=== PATIENT | male | born 1950 | race Caucasian/White ===

== ENCOUNTER 2020-01-26 21:47 | Outpatient (CLI) | payer MEDICARE, OTHER | END 2020-01-26 21:48 | disposition critical access hospital (66) | LOC: EMS 21:47 | PROVIDERS: ATTEND Surgery | DX: R42 Dizziness and giddiness (principal) | CPT/HCPCS: A0425; A0427 ==

== ENCOUNTER 2020-01-26 22:02 | Emergency (ER) | payer MEDICARE, OTHER ==
[2020-01-26] MEDS ORDERED: SODIUM CHLORIDE 0.9% 1,000 ML IV STA (22:30)
--- NOTE | 2020-01-26 22:32 | ED Physician Documentation ---
History of Present Illness - Stated complaint Stated Complaint: DIZZY - Chief complaint Chief Complaint: Neuro - History obtained from History obtained from: Patient - History of Present Illness Timing: Today - Additonal information Additional information: 3 episodes of light headedness while at rest. Did not drink much today except for 3 cups of coffee. Review of Systems Constitutional: denies: Fever Eyes: denies: Decreased vision Ears: denies: Ear pain Nose: denies: Congestion Throat: denies: Sore throat Cardiac: denies: Chest pain / pressure, Palpitations Respiratory: denies: Dyspnea, Cough GI: denies: Abdominal Pain, Nausea, Vomiting : denies: Dysuria, Frequency Skin: denies: Rash Musculoskeletal: denies: Neck pain, Back pain, Extremity pain PD PAST MEDICAL HISTORY - Past Medical History Cardiovascular: Hypertension, High cholesterol, Coronary artery disease, [place] Respiratory: None Endocrine/Autoimmune: None GI: GERD, Hiatal hernia : None HEENT: None Psych: None Musculoskeletal: Osteoarthritis Derm: None - Past Surgical History Past Surgical History: Yes General: Other Cardiovascular: Coronary stent - Present Medications Home Medications: Ambulatory Orders Medication Instructions Recorded Confirmed Aspirin [Aspirin EC] 81 mg PO DAILY 10/26/15 01/26/20 Atorvastatin Calcium [Lipitor] 20 mg PO DAILY 10/26/15 01/26/20 Metoprolol Succinate [Toprol Xl] 25 mg PO DAILY 10/26/15 01/26/20 Omeprazole [PriLOSEC] 20 mg PO BID 10/26/15 01/26/20 Ascorbic Acid [Vitamin C] 1 tab PO DAILY 01/26/20 01/26/20 Lidocaine Patch 5% [Lidoderm Patch] 1 applic .ROUTE DAILY 01/26/20 01/26/20 Magnesium 1 tab PO DAILY 01/26/20 01/26/20 Zinc Gluconate [Zinc] 1 tab PO DAILY 01/26/20 01/26/20 - Allergies Allergies/Adverse Reactions: Allergies Allergy/AdvReac Type Severity Reaction Status Date / Time meperidine [From Demerol] Allergy Rash Verified 01/26/20 22:15 propoxyphene HCl * AdvReac Unknown Verified 01/26/20 22:15 [From Darvon] - Social History Does the pt smoke?: No Smoking Status: Never smoker Does the pt drink ETOH?: No Does the pt have substance abuse?: No - Immunizations Immunizations are current?: Yes - POLST Patient has POLST: No PD ED PE NORMAL - Vitals Vital signs reviewed: Yes (hypertensive ) - General General: Alert and oriented X 3, No acute distress, Well developed/nourished - HEENT HEENT: Atraumatic, PERRL, EOMI, Other (no nystagmus. 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, No motor deficit, No sensory deficit, Normal speech Eye Opening: Spontaneous Motor: Obeys Commands Verbal: Oriented GCS Score: 15 - Psych Psych: Normal mood, Normal affect Results - Vitals Vitals: Vital Signs - 24 hr 01/26/20 22:05 Temperature 36.6 C Heart Rate 65 Respiratory 18 Rate Blood Pressure 148/92 H O2 Saturation 99 Oxygen O2 Source Room air - EKG (time done) 2210 Rate: Rate (enter#) (61) Rhythm: NSR, Other (PAC) Intervals: RBBB Compare to prior EKG: Changed from prior EKG (SPT 10-25-2015 RBBB has developed) Computer interpretation: Agree with computer - Labs Labs: Laboratory Tests 01/26/20 01/26/20 01/26/20 22:45 22:45 22:45 WBC 6.4 RBC 5.11 Hgb 15.1 Hct 45.0 MCV 88.1 MCH 29.5 MCHC 33.6 RDW 12.9 Plt Count 173 MPV 9.5 Neut # (Auto) 4.0 Lymph # (Auto) 1.8 Wake # (Auto) 0.5 Eos # (Auto) 0.2 Baso # (Auto) 0.0 Absolute Nucleated RBC 0.00 Nucleated RBC % 0.0 Sodium 141 Potassium 3.9 Chloride 101 Carbon Dioxide 24 Anion Gap 16.0 H BUN 17 Creatinine 1.0 Estimated GFR (MDRD) 74 L Glucose 114 H Lactic Acid 1.4 Calcium 8.9 Total Bilirubin 0.8 AST 21 ALT 29 Alkaline Phosphatase 80 Total Protein 7.0 Albumin 3.7 Globulin 3.3 Albumin/Globulin Ratio 1.1 Lipase 29 Urine Color Urine Clarity Urine pH Ur Specific Warner Urine Protein Urine Glucose (UA) Urine Ketones Urine Occult Blood Urine Nitrite Urine Bilirubin Urine Urobilinogen Ur Leukocyte Esterase Ur Microscopic Review Urine Culture Comments 01/26/20 22:46 WBC RBC Hgb Hct MCV MCH MCHC RDW Plt Count MPV Neut # (Auto) Lymph # (Auto) Wake # (Auto) Eos # (Auto) Baso # (Auto) Absolute Nucleated RBC Nucleated RBC % Sodium Potassium Chloride Carbon Dioxide Anion Gap BUN Creatinine Estimated GFR (MDRD) Glucose Lactic Acid Calcium Total Bilirubin AST ALT Alkaline Phosphatase Total Protein Albumin Globulin Albumin/Globulin Ratio Lipase Urine Color YELLOW Urine Clarity CLEAR Urine pH 5.5 Ur Specific Warner 1.025 Urine Protein NEGATIVE Urine Glucose (UA) NEGATIVE Urine Ketones NEGATIVE Urine Occult Blood NEGATIVE Urine Nitrite NEGATIVE Urine Bilirubin NEGATIVE Urine Urobilinogen 0.2 (NORMAL) Ur Leukocyte Esterase NEGATIVE Ur Microscopic Review NOT INDICATED Urine Culture Comments NOT INDICATED Procedures - IVC sono (time) 222 Bedside IVC sono: IVC measures (cm) (0.83), IVC collapsed c insp (cm) (complete), Dehydration (est 2+ liter deficit) PD MEDICAL DECISION MAKING - ED course Complexity details: reviewed old records, reviewed results, re-evaluated patient, considered differential, d/w patient ED course: 69-year-old male with episodic dizziness today at rest is found to be dehydrated on interrogation the inferior vena cava. He is administered saline. There are no other specific findings on laboratory evaluation with exception of a concentrated urine. Departure - Departure Disposition: 01 Home, Self Care Clinical Impression: Dehydration Condition: Stable Instructions: ED Dehydration Follow-Up: Velma Castillo MD [Primary Care Provider] -
[2020-01-26 22:48] LABS: BASOPHILS % (AUTO) 0.5 %; EOSINOPHILS # (AUTO) 0.2 10^3/uL (0.0-0.7); EOSINOPHILS % (AUTO) 2.6 %; HGB - HEMOGLOBIN 15.1 g/dL (14.0-18.0); LYMPHOCYTES # (AUTO) 1.8 10^3/uL (1.5-3.5); LYMPHOCYTES % (AUTO) 27.4 %; MEAN CORPUSCULAR HEMOGLOBIN 29.5 pg (27.0-31.0); MEAN CORPUSCULAR HGB CONC 33.6 g/dL (32.0-36.0); MEAN CORPUSCULAR VOLUME 88.1 fL (80.0-94.0); MEAN PLATELET VOLUME 9.5 fL (7.4-11.4); MONOCYTES # (AUTO) 0.5 10^3/uL (0.0-1.0); MONOCYTES % (AUTO) 7.2 %; NEUTROPHILS % (AUTO) 62.1 %; PLT - PLATELET COUNT 173 10^3/uL (130-450); RED BLOOD COUNT 5.11 10^6/uL (4.70-6.10); RED CELL DISTRIBUTION WIDTH 12.9 % (12.0-15.0); WHITE BLOOD COUNT 6.4 x10^3/uL (4.8-10.8)
[2020-01-26 23:04] LABS: ALBUMIN 3.7 g/dL (3.2-5.5); ALBUMIN/GLOBULIN RATIO 1.1 (1.0-2.2); BILIRUBIN,TOTAL 0.8 mg/dL (0.2-1.0); CALCIUM 8.9 mg/dL (8.5-10.3)
[2020-01-26 23:22] LABS: BILIRUBIN,URINE NEGATIVE (NEGATIVE); GLUCOSE, URINE (UA) NEGATIVE (NEGATIVE); KETONES,URINE (UA) NEGATIVE (NEGATIVE); LEUKOCYTE ESTERASE, URINE NEGATIVE (NEGATIVE); NITRITE,URINE NEGATIVE (NEGATIVE); OCCULT BLOOD,URINE NEGATIVE (NEGATIVE); PH,URINE 5.5 PH (5.0-7.5); PROTEIN,URINE NEGATIVE (NEGATIVE); UROBILINOGEN,URINE 0.2 (NORMAL) E.U./dL (NORMAL)
[2020-01-26 23:24] LABS: CLARITY,URINE CLEAR (CLEAR)
[2020-01-26 23:50] VITALS: BP 133/78
== END 2020-01-26 23:50 | disposition home or self-care (01) ==
LOC: EDUNIT# → ED 22:02
DX: E86.0 Dehydration (principal); I10 Essential (primary) hypertension; I49.1 Atrial premature depolarization; I45.10 Unspecified right bundle-branch block; Z79.82 Long term (current) use of aspirin
CPT/HCPCS: 36415; 80053; 81001; 81003; 83605; 83690; 85025; 87086; 93005; 96360; 99283

== ENCOUNTER 2020-03-18 21:30 | Outpatient (CLI) | payer MEDICARE, OTHER ==
--- OUTSIDE RECORDS SUMMARY | 2020-03-24 01:23 | EXTERNAL MEDICAL SUMMARY RPT | Continuity of Care Document ---
:1950 Demographics Phone Unavailable Preferred Language Unknown Marital Status Unknown Catholic Affiliation Unknown Race Unknown Ethnic Group Unknown Author Organization [facility] Address [address] [place] [address] Phone Care Team Providers Name Role Phone Clerc Unavailable Unavailable Burnett Unavailable Unavailable Problems date description facility 2015-10-24 14:36 OLD MYOCARDIAL INFARCTION [facility] 2015-10-24 14:36 CALCULUS OF GALLBLADDER W/O [facility] CHOLECYSTITIS W/O OBSTRUCTION 2015-10-24 14:36 ELEVATED BLOOD-PRESSURE READING, W/O W [facility] DIAGNOSIS OF HTN 2015-10-24 14:36 EPIGASTRIC PAIN [facility] 2015-10-26 18:38 ENTEROCOCCUS THE CAUSE OF [facility] DISEASES CLASSIFIED ELSEWHERE 2015-10-26 18:38 PSEUDOMONAS (MALLEI) CAUSING [facility] DISEASES CLASSD ELSWHR 2015-10-26 18:38 PURE HYPERCHOLESTEROLEMIA [facility] 2015-10-26 18:38 ESSENTIAL (PRIMARY) HYPERTENSION [facility] 2015-10-26 18:38 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 2020-01-26 22:02 ATRIAL PREMATURE DEPOLARIZATION Merged with [facility] 2020-01-26 22:02 HALF-WAY (CURRENT) USE OF ASPIRIN [facility] Allergies date description facility CHLORAMPHENICOL [facility] CHLORHEXIDINE [facility] CHLORMETHIAZOLE [facility] HYDROCODONE BITARTRATE [facility] IBUPROFEN [facility] OXYCODONE [facility] NO KNOWN ENVIRONMENTAL ALLERGIES [facility] UNCODED NONSCREENABLE ALLERGEN [facility] OTHER [facility] NO ALLERGY INFORMATION AVAILABLE [facility] PENICILLINS [facility] SULFA (SULFONAMIDE ANTIBIOTICS) Merged with [facility] NO KNOWN ALLERGIES [facility] CODEINE [facility] ASPIRIN [facility] PANTOPRAZOLE [facility] LISINOPRIL [facility] SULFAMETHOXAZOLE-TRIMETHOPRIM [facility] propoxyphene HCl * [facility] meperidine [facility] NO KNOWN ENVIRONMENTAL ALLERGIES [facility] NO KNOWN ALLERGIES [facility] ALPRAZOLAM [facility] SCOPOLAMINE [facility] ISOSORBIDE MONONITRATE [facility] LISINOPRIL [facility] DULOXETINE [facility] Results Social History date description facility [id number]
== END 2020-03-18 21:31 | disposition short-term general hospital (02) ==
LOC: EMS 21:30
PROVIDERS: ATTEND Surgery
DX: R50.9 Fever, unspecified (principal); R35.0 Frequency of micturition
CPT/HCPCS: A0425; A0429

== ENCOUNTER 2020-03-18 21:58 | Emergency (ER) | payer MEDICARE, OTHER ==
[2020-03-18 22:28] LABS: BILIRUBIN,URINE NEGATIVE (NEGATIVE); GLUCOSE, URINE (UA) NEGATIVE (NEGATIVE); KETONES,URINE (UA) NEGATIVE (NEGATIVE); LEUKOCYTE ESTERASE, URINE TRACE (NEGATIVE); NITRITE,URINE NEGATIVE (NEGATIVE); OCCULT BLOOD,URINE MODERATE (NEGATIVE); PROTEIN,URINE NEGATIVE (NEGATIVE); UROBILINOGEN,URINE 0.2 (NORMAL) E.U./dL (NORMAL)
[2020-03-18 22:30] LABS: CLARITY,URINE CLEAR (CLEAR)
[2020-03-18 22:37] LABS: BACTERIA,URINE Few /HPF (None Seen); SQUAMOUS EPITHELIAL CELL,UR RARE Squamous (<= Few)
[2020-03-18 22:50] LABS: BASOPHILS % (AUTO) 0.1 %; EOSINOPHILS % (AUTO) 0.2 %; LYMPHOCYTES # (AUTO) 0.7 10^3/uL (1.5-3.5); LYMPHOCYTES % (AUTO) 6.8 %; MEAN CORPUSCULAR HEMOGLOBIN 29.6 pg (27.0-31.0); MEAN CORPUSCULAR VOLUME 87.2 fL (80.0-94.0); MEAN PLATELET VOLUME 9.2 fL (7.4-11.4); MONOCYTES # (AUTO) 0.4 10^3/uL (0.0-1.0); MONOCYTES % (AUTO) 4.4 %; NEUTROPHILS # (AUTO) 8.7 10^3/uL (1.5-6.6); NEUTROPHILS % (AUTO) 88.1 %; PLT - PLATELET COUNT 163 10^3/uL (130-450); RED CELL DISTRIBUTION WIDTH 12.9 % (12.0-15.0); WHITE BLOOD COUNT 9.8 x10^3/uL (4.8-10.8)
[2020-03-18 23:05] LABS: ALBUMIN 4.1 g/dL (3.2-5.5); ALBUMIN/GLOBULIN RATIO 1.3 (1.0-2.2); BILIRUBIN,TOTAL 1.1 mg/dL (0.2-1.0); CALCIUM 8.9 mg/dL (8.5-10.3); CREATININE 1.1 mg/dL (0.6-1.2); TOTAL PROTEIN 7.3 g/dL (6.7-8.2)
[2020-03-18] MEDS ORDERED: LACTATED RINGERS 1,000 ML IV STA (23:32)
[2020-03-18] MEDS ORDERED: cefTRIAXone 1 GM in SODIUM CHLORIDE 0.9% MINIBAG 100 ML IV STA (23:33)
[2020-03-18] MEDS ORDERED: SODIUM CHLORIDE 0.9% 1,000 ML IV STA (23:41)
[2020-03-18] MEDS ORDERED: cefTRIAXone 1 GM VIAL ONE (23:45)
--- NOTE | 2020-03-18 23:57 | ED Physician Documentation ---
History of Present Illness - Stated complaint Stated Complaint: DIARRHEA/FEVER - Chief complaint Chief Complaint: Fever - History obtained from History obtained from: Patient - Additonal information Additional information: 69-year-old man with past medical history of high blood pressure, hyperlipidemia, prostate enlargement status post biopsy yesterday by urologist Dr. Chaudhry, presents with dysuria since that time, increased frequency, hematuria, and fever today starting around 11:30am. also with some loose stools. patient endorses tmax 101 oral today. also with one episode nbnb n/v. denies b ack pain, abd pain, other symptoms. he took cipro twice daily the day before the procedure, the day of, and finished his last dose today. Review of Systems Ten Systems: 10 systems reviewed and negative Constitutional: reports: Fever, Chills, Myalgias Cardiac: denies: Chest pain / pressure Respiratory: denies: Dyspnea, Cough GI: reports: Nausea, Vomiting, Diarrhea, Bloody / black stool. denies: Abdominal Pain : reports: Dysuria, Frequency PD PAST MEDICAL HISTORY - Past Medical History Past Medical History: Yes Cardiovascular: Hypertension, High cholesterol, Coronary artery disease, [place] Respiratory: None Endocrine/Autoimmune: None GI: GERD, Hiatal hernia : None HEENT: None Psych: None Musculoskeletal: Osteoarthritis Derm: None - Past Surgical History Past Surgical History: Yes General: Other Cardiovascular: Coronary stent - Present Medications Home Medications: Ambulatory Orders Medication Instructions Recorded Confirmed Aspirin [Aspirin EC] 81 mg PO DAILY 10/26/15 03/18/20 Atorvastatin Calcium [Lipitor] 20 mg PO DAILY 10/26/15 03/18/20 Metoprolol Succinate [Toprol Xl] 25 mg PO DAILY 10/26/15 03/18/20 Omeprazole [PriLOSEC] 20 mg PO BID 10/26/15 03/18/20 Ascorbic Acid [Vitamin C] 1 tab PO DAILY 01/26/20 03/18/20 Lidocaine Patch 5% [Lidoderm Patch] 1 applic .ROUTE DAILY 01/26/20 03/18/20 Magnesium 1 tab PO DAILY 01/26/20 01/26/20 Zinc Gluconate [Zinc] 1 tab PO DAILY 01/26/20 03/18/20 Cefpodoxime Proxetil [Vantin] 200 mg PO Q12H 14 Days #28 tablet 03/19/20 - Allergies Allergies/Adverse Reactions: Allergies Allergy/AdvReac Type Severity Reaction Status Date / Time meperidine [From Demerol] Allergy Rash Verified 03/18/20 22:05 propoxyphene HCl * AdvReac Unknown Verified 03/18/20 22:05 [From Darvon] - Social History Does the pt smoke?: No Smoking Status: Never smoker Does the pt drink ETOH?: No Does the pt have substance abuse?: No - Immunizations Immunizations are current?: Yes - POLST Patient has POLST: No PD ED PE NORMAL - Vitals Vital signs reviewed: Yes - General General: Alert and oriented X 3 - HEENT HEENT: Atraumatic, PERRL, EOMI - Neck Neck: Supple, no meningeal sign - Cardiac Cardiac: RRR - Respiratory Respiratory: No respiratory distress, Clear bilaterally - Abdomen Abdomen: Non tender, Non distended - Male Male : Deferred - Rectal Rectal: Other (brown stool. +external and internal hemorrhoids) - Back Back: No CVA TTP - Derm Derm: Normal color - Extremities Extremities: No deformity - Neuro Neuro: Alert and oriented X 3 - Psych Psych: Normal mood, Normal affect Results - Vitals Vitals: Vital Signs - 24 hr 03/18/20 03/18/20 22:05 22:10 Temperature 37.3 C 37.3 C Heart Rate 99 99 Respiratory 20 20 Rate Blood Pressure 150/85 H 150/85 H O2 Saturation 95 95 Oxygen O2 Source Room air - Labs Labs: Laboratory Tests 03/18/20 03/18/20 03/18/20 22:02 22:30 22:30 WBC 9.8 RBC 5.40 Hgb 16.0 Hct 47.1 MCV 87.2 MCH 29.6 MCHC 34.0 RDW 12.9 Plt Count 163 MPV 9.2 Neut # (Auto) 8.7 H Lymph # (Auto) 0.7 L Ada # (Auto) 0.4 Eos # (Auto) 0.0 Baso # (Auto) 0.0 Absolute Nucleated RBC 0.00 Nucleated RBC % 0.0 Sodium 138 Potassium 3.7 Chloride 99 L Carbon Dioxide 25 Anion Gap 14.0 H BUN 14 Creatinine 1.1 Estimated GFR (MDRD) 66 L Glucose 147 H Lactic Acid Calcium 8.9 Total Bilirubin 1.1 H AST 27 ALT 36 Alkaline Phosphatase 99 Total Protein 7.3 Albumin 4.1 Globulin 3.2 Albumin/Globulin Ratio 1.3 Lipase 19 L Urine Color YELLOW Urine Clarity CLEAR Urine pH 5.0 Ur Specific Ehrenberg >=1.030 H Urine Protein NEGATIVE Urine Glucose (UA) NEGATIVE Urine Ketones NEGATIVE Urine Occult Blood MODERATE H Urine Nitrite NEGATIVE Urine Bilirubin NEGATIVE Urine Urobilinogen 0.2 (NORMAL) Ur Leukocyte Esterase TRACE H Urine RBC 11-25 H Urine WBC 6-10 H Ur Squamous Epith Cells RARE Squamous Urine Bacteria Few Ur Microscopic Review INDICATED Urine Culture Comments INDICATED 03/18/20 03/18/20 22:45 23:55 WBC RBC Hgb Hct MCV MCH MCHC RDW Plt Count MPV Neut # (Auto) Lymph # (Auto) Ada # (Auto) Eos # (Auto) Baso # (Auto) Absolute Nucleated RBC Nucleated RBC % Sodium Potassium Chloride Carbon Dioxide Anion Gap BUN Creatinine Estimated GFR (MDRD) Glucose Lactic Acid 2.2 1.8 Calcium Total Bilirubin AST ALT Alkaline Phosphatase Total Protein Albumin Globulin Albumin/Globulin Ratio Lipase Urine Color Urine Clarity Urine pH Ur Specific Eh[place]berg Urine Protein Urine Glucose (UA) Urine Ketones Urine Occult Blood Urine Nitrite Urine Bilirubin Urine Urobilinogen Ur Leukocyte Esterase Urine RBC Urine WBC Ur Squamous Epith Cells Urine Bacteria Ur Microscopic Review Urine Culture Comments PD MEDICAL DECISION MAKING - ED course Complexity details: reviewed results, d/w patient ED course: 69yM p/w fevers s/p prostate bx yesterday, despited prophylactic antibiotics. Symptoms of dysuria, loose stools likely related to this. attempted to call Dr. Black via [facility] with [facility] . There is currently no urologist transportation escort per their office. Will give abx, fluids, recheck patient's lactate and if downtrending, he can follow up in office in AM. patient is in NAD, comfortable at this time. Departure - Departure Disposition: Home, Self Care Clinical Impression: UTI (urinary tract infection), Hematuria, Dysuria, Fever Condition: Good Instructions: ED UTI Cystitis Male Follow-Up: Natalie Chaudhry MD [Physician No Access] - Prescriptions: Cefpodoxime Proxetil [Vantin] 200 mg PO Q12H 14 Days #28 tablet Comments: You have been seen in the emergency department for fever that is likely related to your prostate biopsy. You should take the antibiotics we have prescribed for you, and follow-up with Dr. Chaudhry in the morning. Return to the ED for any new or worsening symptoms.
[2020-03-19 00:41] VITALS: BP 141/83
--- OUTSIDE RECORDS SUMMARY | 2020-03-24 01:23 | EXTERNAL MEDICAL SUMMARY RPT | Continuity of Care Document ---
:1950 Demographics Phone Unavailable Preferred Language Unknown Marital Status Unknown Worship Affiliation Unknown Race Unknown Ethnic Group Unknown Author Organization [facility] Address [address] [place] [address] Phone Care Team Providers Name Role Phone Clerc Unavailable Unavailable Burnett Unavailable Unavailable Problems date description facility 2015-10-24 14:36 OLD MYOCARDIAL INFARCTION [facility] 2015-10-24 14:36 CALCULUS OF GALLBLADDER W/O [facility] CHOLECYSTITIS W/O OBSTRUCTION 2015-10-24 14:36 ELEVATED BLOOD-PRESSURE READING, W/O W [facility] DIAGNOSIS OF HTN 2015-10-24 14:36 EPIGASTRIC PAIN [facility] 2015-10-26 18:38 ENTEROCOCCUS THE CAUSE OF [facility] DISEASES CLASSIFIED ELSEWHERE 2015-10-26 18:38 PSEUDOMONAS (MALLEI) CAUSING 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 [facility] 2015-10-26 18:38 PRESENCE OF CORONARY ANGIOPLASTY [facility] IMPLANT AND GRAFT 2020-01-26 22:02 DEHYDRATION [facility] 2020-01-26 22:02 ESSENTIAL (PRIMARY) HYPERTENSION [facility] 2020-01-26 22:02 UNSPECIFIED RIGHT BUNDLE-BRANCH [facility] BLOCK 2020-01-26 22:02 ATRIAL PREMATURE DEPOLARIZATION [facility] 2020-01-26 22:02 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 [facility] Allergies date description facility CHLORAMPHENICOL [facility] CHLORHEXIDINE [facility] CHLORMETHIAZOLE [facility] HYDROCODONE BITARTRATE [facility] IBUPROFEN [facility] OXYCODONE [facility] NO KNOWN ENVIRONMENTAL ALLERGIES [facility] UNCODED NONSCREENABLE ALLERGEN [facility] OTHER [facility] NO ALLERGY INFORMATION AVAILABLE [facility] PENICILLINS [facility] SULFA (SULFONAMIDE ANTIBIOTICS) [facility] NO KNOWN ALLERGIES [facility] CODEINE [facility] ASPIRIN [facility] PANTOPRAZOLE [facility] LISINOPRIL [facility] SULFAMETHOXAZOLE-TRIMETHOPRIM [facility] propoxyphene HCl * [facility] meperidine [facility] NO KNOWN ENVIRONMENTAL ALLERGIES [facility] NO KNOWN ALLERGIES [facility] ALPRAZOLAM [facility] SCOPOLAMINE [facility] ISOSORBIDE MONONITRATE [facility] LISINOPRIL [facility] DULOXETINE [facility] Results Social History date description facility [id number]
== END 2020-03-19 01:33 | disposition home or self-care (01) ==
LOC: EDBD → EDUNIT# → ED 21:58
DX: N39.0 Urinary tract infection, site not specified (principal); R31.9 Hematuria, unspecified; R50.81 Fever presenting with conditions classified elsewhere; K64.8 Other hemorrhoids; K64.4 Residual hemorrhoidal skin tags; N40.0 Benign prostatic hyperplasia without lower urinary tract symptoms; Z98.890 Other specified postprocedural states; I10 Essential (primary) hypertension; E78.5 Hyperlipidemia, unspecified; Z79.82 Long term (current) use of aspirin
CPT/HCPCS: 80053; 81001; 83605; 83690; 85025; 87040; 87077; 87086; 87181; 96365; 99284; J7120; 81003